=== PATIENT | male | born 1990 | race Caucasian/White ===

== ENCOUNTER 2017-05-02 01:11 | Emergency (ER) | payer SELFPAY ==
[2017-05-02] MEDS ORDERED: Pantoprazole 40 MG Tab.CR PO STA (01:21)
[2017-05-02 02:00] LABS: CHLORIDE,CL 103 mmol/L (98-110)
[2017-05-02 02:06] LABS: SODIUM,NA 144 mmol/L (136-146)
--- NOTE | 2017-05-02 02:16 | EDM.PDOC ---
ED HPI GENERAL MEDICAL PROBLEM - General Chief Complaint: Gastrointestinal Problem Stated Complaint: REQ SEE Wade Time Seen by Provider: 05/02/17 02:12 - History of Present Illness INITIAL COMMENTS - FREE TEXT/NARRATIVE: HISTORY AND PHYSICAL: History of present illness: Patient is 27-year-old male presents with a concern of blood in his stool he states he's had some constipation he is currently on methadone in a program for opiate dependence there's been no fever chills nausea vomiting dizziness shortness of breath other complaints Review of systems: As per history of present illness and below otherwise all systems reviewed and negative. Past medical history: As per history of present illness and as reviewed below otherwise noncontributory. Surgical history: As per history of present illness and as reviewed below otherwise noncontributory. Social history: No reported history of drug or alcohol abuse. Family history: As per history of present illness and as reviewed below otherwise noncontributory. Physical exam: HEENT: Atraumatic, normocephalic, pupils reactive, negative for conjunctival pallor or scleral icterus, mucous membranes moist, throat clear, neck supple, nontender, trachea midline. Lungs: Clear to auscultation, breath sounds equal bilaterally, chest nontender. Heart: S1S2, regular, negative for clicks, rubs, or JVD. Abdomen: Soft, nondistended, nontender. Negative for masses or hepatosplenomegaly. Negative for costovertebral tenderness. Pelvis: Stable nontender. Genitourinary: Deferred. Rectal: Deferred. Extremities: Atraumatic, negative for cords or calf pain. Neurovascular unremarkable. Neuro: Awake, alert, oriented. Cranial nerves II through XII unremarkable. Cerebellum unremarkable. Motor and sensory unremarkable throughout. Exam nonfocal. Diagnostics: Acute abdominal series CBC CMP Therapeutics: None Impression: #1 history of hematochezia #2 constipation #3 history of opioid dependence on methadone Definitive disposition and diagnosis as appropriate pending reevaluation and review of above. - Related Data Allergies Allergy/AdvReac Type Severity Reaction Status Date / Time Penicillins Allergy Hives Verified 05/02/17 01:22 Home Meds: Home Meds Methadone HCl [Methadose] 40 mg PO DAILY 05/02/17 [History] Past Medical History - Past Health History Medical/Surgical History: Denies Medical/Surgical History Cardiovascular History: Reports: None Respiratory History: Reports: None Gastrointestinal History: Reports: None Genitourinary History: Reports: None Musculoskeletal History: Reports: Fracture Neurological History: Reports: None Psychiatric History: Reports: Addiction, Other (See Below) Other Psychiatric History: Drug Addiction Endocrine/Metabolic History: Reports: None Hematologic History: Reports: None Oncologic (Cancer) History: Reports: None Dermatologic History: Reports: None - Infectious Disease History Infectious Disease History: Reports: None Other Infectious Disease History: chlamydia - Past Surgical History HEENT Surgical History: Reports: Myringotomy w Tube(s), Oral Surgery Social & Family History - Family History HEENT: Reports: None Cardiac: Reports: None Respiratory: Reports: None GI: Reports: None Musculoskeletal: Reports: None Neurological: Reports: None Hematologic: Reports: None Immunologic: Reports: None Dermatologic: Reports: None - Tobacco Use Smoking Status *Q: Current Every Day Smoker Years of Tobacco use: 10 Packs/Tins Daily: 1 - Alcohol Use Days Per Week of Alcohol Use: 0 - Recreational Drug Use Recreational Drug Use: Yes Drug Use in Last 12 Months: Yes Recreational Drug Type: Reports: Oxycodone, Vicodin Recreational Drug Use Frequency: Not Used In Over 6 Months Recreational Drug Last Use: 10 years ago ED ROS GENERAL - Review of Systems Review Of Systems: ROS reveals no pertinent complaints other than HPI. ED EXAM, GENERAL - Physical Exam Exam: See Below (See dictation) Course - Vital Signs Last Recorded V/S: Last Vital Signs Temp 36.8 C 05/02/17 01:24 Pulse 77 05/02/17 01:24 Resp 14 05/02/17 01:24 BP 131/87 05/02/17 01:24 Pulse Ox 98 05/02/17 01:24 - Orders/Labs/Meds Orders: Active Orders 24 hr Category Date Time Status Acute Abdomen Series [Abdomen 2V AP Upright Decub] [CR] Exams 05/02/17 01:22 Taken Stat Labs: Laboratory Tests 05/02/17 05/02/17 Range/Units 01:34 01:34 WBC 5.13 (4.0-11.0) K/uL RBC 5.17 (4.50-5.90) M/uL Hgb 16.3 (13.0-17.0) g/dL Hct 46.0 (38.0-50.0) % MCV 89.0 (80.0-98.0) fL MCH 31.5 (27.0-32.0) pg MCHC 35.4 (31.0-37.0) g/dL RDW Std Deviation 41.3 (28.0-62.0) fl RDW Coeff of Fiorella 13 (11.0-15.0) % Plt Count 161 (150-400) K/uL MPV 9.50 (7.40-12.00) fL Neut % (Auto) 51.9 (48.0-80.0) % Lymph % (Auto) 37.0 (16.0-40.0) % Baxter % (Auto) 8.2 (0.0-15.0) % Eos % (Auto) 2.3 (0.0-7.0) % Baso % (Auto) 0.6 (0.0-1.5) % Neut # (Auto) 2.7 (1.4-5.7) K/uL Lymph # (Auto) 1.9 (0.6-2.4) K/uL Baxter # (Auto) 0.4 (0.0-0.8) K/uL Eos # (Auto) 0.1 (0.0-0.7) K/uL Baso # (Auto) 0.0 (0.0-0.1) K/uL Nucleated RBC % 0.0 /100WBC Nucleated RBCs # 0 K/uL Sodium 144 (136-146) mmol/L Potassium 4.2 (3.5-5.1) mmol/L Chloride 103 (98-110) mmol/L Carbon Dioxide 33 H (21-31) mmol/L BUN 7 (6.0-23.0) mg/dL Creatinine 0.9 (0.6-1.5) mg/dL Est Cr Clr Drug Dosing 121.52 mL/min Estimated GFR (MDRD) > 60.0 ml/min Glucose 95 (60-110) mg/dL Calcium 10.3 (8.8-10.8) mg/dL Total Bilirubin 2.3 H (0.1-1.5) mg/dL AST 15 (5-40) IU/L ALT 17 (8-54) IU/L Alkaline Phosphatase 102 (40-150) Total Protein 7.5 (6.0-8.0) g/dL Albumin 4.8 (3.5-5.0) g/dL Globulin 2.7 (2.0-3.5) g/dL Albumin/Globulin Ratio 1.8 (1.3-2.8) Meds: Medications Discontinued Medications Generic Name Dose Route Start Last Admin Trade Name Rahel PRN Reason Stop Dose Admin Pantoprazole Sodium 40 mg 05/02/17 01:21 05/02/17 01:29 Protonix PO 05/02/17 01:22 40 mg NOW STA Administration Departure - Departure Time of Disposition: 02:14 Disposition: Home, Self-Care 01 Condition: Good Clinical Impression: Constipation, History of rectal bleeding - Discharge Information Referrals: PCP,None [Primary Care Provider] - Additional Instructions: The following information is given to patients seen in the emergency department who are being discharged to home. This information is to outline your options for follow-up care. We provide all patients seen in our emergency department with a follow-up referral. The need for follow-up, as well as the timing and circumstances, are variable depending upon the specifics of your emergency department visit. If you don't have a primary care physician on staff, we will provide you with a referral. We always advise you to contact your personal physician following an emergency department visit to inform them of the circumstance of the visit and for follow-up with them and/or the need for any referrals to a consulting specialist. The emergency department will also refer you to a specialist when appropriate. This referral assures that you have the opportunity for followup care with a specialist. All of these measure are taken in an effort to provide you with optimal care, which includes your followup. Under all circumstances we always encourage you to contact your private physician who remains a resource for coordinating your care. When calling for followup care, please make the office aware that this follow-up is from your recent emergency room visit. If for any reason you are refused follow-up, please contact the [facility] emergency department at and asked to speak to the emergency department charge nurse. DOMINIQUE [facility] Specialty Care - General Surgery Professional Building [address] [place] [address], [address] [place] [address] Colace as prescribed push fluids follow-up Gen. surgery call for appointment above return as needed as discussed - My Orders Last 24 Hours: My Active Orders 05/02/17 01:22 Acute Abdomen Series [Abdomen 2V AP Upright Decub] [CR] Stat - Assessment/Plan Last 24 Hours: My Active Orders 05/02/17 01:22 Acute Abdomen Series [Abdomen 2V AP Upright Decub] [CR] Stat
[2017-05-02 02:40] VITALS: BP 128/82
--- NOTE | 2017-05-02 12:07 | CR ---
EXAM DATE: 05/02/17 PATIENT'S AGE: 27 Patient: SUSSY PARIKH Facility: [place], [place] Site . Site : 1990 Study: XRay Abdomen WITH PA CHEST [id number]/[id number] 1:51:08 AM Ordering Physician: Doctor Matthews Final Report: INDICATION: BLOOD IN STOOL FOR OVER 2 DAYS, NO ABDOMINAL PAIN, NAUSEA, VOMITING INDICATION: Blood in stools TECHNIQUE: Abdomen 2 view abdomen one view chest. COMPARISON: None FINDINGS: Bowel: Bowel pattern is normal. Colonic fecal retention. Soft tissues: No sign of free air. No sign of soft tissue mass. No suspicious calcifications. Bones: Unremarkable for age. Chest: The cardiac size is within normal limits. The lungs and pleural spaces are clear. IMPRESSION: Colonic fecal retention. Dictated by Jasper Kasper MD @ 05/02/2017 1:56:14 AM Dictated by: Jasper Kasper MD @ 05/02/2017 01:56:28 (Electronic Signature) Report Signed by Proxy. [facility]
== END 2017-05-02 02:31 | disposition home or self-care (01) ==
LOC: MW.ED 01:11
DX: K59.00 Constipation, unspecified (principal); F17.210 Nicotine dependence, cigarettes, uncomplicated; K92.1 Melena; F11.20 Opioid dependence, uncomplicated; Z96.22 Myringotomy tube(s) status; Z87.19 Personal history of other diseases of the digestive system; Z86.59 Personal history of other mental and behavioral disorders; Z88.0 Allergy status to penicillin; Z79.899 Other long term (current) drug therapy
CPT/HCPCS: 36415; 74022; 80053; 85025; 99285; A9270; 99282